=== PATIENT | female | born 1960 | race Caucasian/White ===

== ENCOUNTER 2017-04-13 08:14 | Emergency (ER) | payer OTHER ==
--- NOTE | 2017-04-13 08:16 | ED Physician Documentation ---
General Adult - HISTORIAN Historian: patient - HPI Stated Complaint: left arm "tingling like asleep" Chief Complaint: Upper Extremity Problem Onset: days ago (3) Timing: still present, other (worse at night ) Severity: mild Modifying Factors: she feels it is increased at night Context: tingling like asleep Quality: no pain Location: left arm and left leg - mild on left lower lip Further Comments: yes (she has been on a tapering does of prednisone for 11 days - she has a borderline HTN issue) Last known Well Date: 04/05/17 Last Known Well Time: 09:00 Last known Well Code/Unknown Code: Unknown - ROS CONST: no problems, recent illness (poison walker or rash ). denies: weakness, chills EYES/ENT: denies: problems with vision CVS/RESP: denies: chest pain, shortness of breath, cough GI/: denies: abdominal pain, problems urinating, vomiting, nausea MS/SKIN/LYMPH: other (rash that has resolved ) - PAST HX Past History: other (borderline HTN ) Other History: pancreatitis. denies: CVA, TIA, diabetes Type 1, diabetes Type 2 , hepatitis, HIV, seizure disorder Surgeries/Procedures: none Immunizations: referred to PCP Allergies/Adverse Reactions: Allergies Allergy/AdvReac Type Severity Reaction Status Date / Time cefadroxil hydrate Allergy Verified 04/13/17 08:30 [From [facility]] Penicillins Allergy Verified 04/13/17 08:30 Home Medications: Ambulatory Orders Medication Instructions Recorded NK [NK] 01/10/14 - SOCIAL HX Smoking History: non-smoker Alcohol Use: none Drug Use: none - FAMILY HX Family History: Yes (Mom HTN Dad HTN ) - VITAL SIGNS Vital Signs: Vital Signs Temp Pulse Resp BP Pulse Ox 150/97 01/10/14 14:11 - REVIEWED ASSESSMENTS Nursing Assessment Reviewed: Yes Vitals Reviewed: Yes Progress - Results/Orders Results/Orders: Examination: CT head without contrast History: Numbness Comparison exam: None available Technique: Noncontrast head CT protocol. Findings: Ventricles and sulci are appropriate for patient age. Cerebrocerebellar parenchyma demonstrates normal attenuation. No evidence for parenchymal hemorrhage. No evidence for mass or mass effect. No midline shift. No extra axial fluid collections. Partial visualization of the paranasal sinuses demonstrates right maxillary sinus air-fluid level. Mastoid air cells, orbits, skull and scalp without gross irregularity. Impression: No acute parenchymal process. No hemorrhage. Consider obtaining MRI brain to further evaluate if clinically warranted. Electronically signed on Apr 13, 2017 10:01:04 AM CDT by: Kee Sneed - EKG/XRAY/CT EKG: NSR General Adult Physical Exam - PHYSICAL EXAM GENERAL APPEARANCE: no distress EENT: eye inspection normal, ENT inspection normal, pharynx normal NECK: normal inspection RESPIRATORY: no resp distress CVS: reg rate & rhythm, heart sounds normal, equal pulses, no murmur ABDOMEN: soft, no organomegaly, normal bowel sounds, no abdominal bruit, no distension BACK: normal inspection SKIN: warm/dry, normal color EXTREMITIES: non-tender NEURO: oriented X3, CN's nml as tested, motor nml, sensation nml, mood/affect nml Discharge Clincal Impression: Medication adverse effect Qualifiers: Encounter type: initial encounter Qualified Code(s): T88.7XXA - Unspecified adverse effect of drug or medicament, initial encounter Referrals: Primary Doctor,No [Primary Care Provider] - 2 Days Condition: Stable Disposition: 01 HOME, SELF-CARE Decision to Admit: NO Date of Decison to Admit: 04/13/17 Decision Time: 10:04
[2017-04-13] MEDS ORDERED: methylPREDNISolone ACETATE 80 MG/ML VIAL IM ONE (08:54)
[2017-04-13] MEDS ORDERED: FAMOTIDINE 20 MG TABLET PO ONE (08:55)
[2017-04-13] MEDS ORDERED: diphenhydrAMINE HCL 25 MG TABLET PO ONE (08:56)
[2017-04-13 09:13] LABS: BASOPHILS % 0.9 (0.0-1.5); MEAN CORPUSCULAR HEMOGLOBIN 30.4 pg (28.0-34.0); MEAN CORPUSCULAR VOLUME 90.5 fl (80.0-100.0); MONOCYTES % 8.2 % (0.0-11.0); NEUTROPHILS # 4.5 # k/uL (1.4-7.7)
[2017-04-13 09:24] LABS: eGFR (African) > 60; eGFR (Non-African) > 60
[2017-04-13 10:23] VITALS: BP 142/79
--- NOTE | 2017-04-13 13:17 | Diagnostic Imaging Report ---
KO SZYMANSKI [facility] [id number] [facility] [address] [place], [place]. [address] Report Submission Date: Apr 13, 2017 10:01:04 AM CDT Patient Study Name: SUMAN LEO Date: Apr 13, 2017 9:37:58 AM CDT Modality Type: CT\SR Gender: F Description: CT BRAIN W/O CONTRAST : 62 Institution: [facility] Physician: KO SZYMANSKI Examination: CT head without contrast History: Numbness Comparison exam: None available Technique: Noncontrast head CT protocol. Findings: Ventricles and sulci are appropriate for patient age. Cerebrocerebellar parenchyma demonstrates normal attenuation. No evidence for parenchymal hemorrhage. No evidence for mass or mass effect. No midline shift. No extra axial fluid collections. Partial visualization of the paranasal sinuses demonstrates right maxillary sinus air-fluid level. Mastoid air cells, orbits, skull and scalp without gross irregularity. Impression: No acute parenchymal process. No hemorrhage. Consider obtaining MRI brain to further evaluate if clinically warranted. Electronically signed on Apr 13, 2017 10:01:04 AM CDT by: Kee Sneed [facility]
== END 2017-04-13 10:19 | disposition home or self-care (01) ==
LOC: ED 08:14
DX: T88.7XXA Unspecified adverse effect of drug or medicament, initial encounter (principal); X58.XXXA Exposure to other specified factors, initial encounter; Y93.9 Activity, unspecified; Y99.9 Unspecified external cause status
CPT/HCPCS: 70450; 80053; 83735; 84484; 85025; 99283; S1016

== ENCOUNTER 2018-01-25 11:25 | Outpatient (CLI) | payer OTHER ==
[2018-01-25 12:29] LABS: eGFR (African) > 60; eGFR (Non-African) > 60
== END 2018-01-25 11:26 ==
LOC: RT 11:25
PROVIDERS: ATTEND Physician Assistant
DX: I10 Essential (primary) hypertension (principal); R20.2 Paresthesia of skin
CPT/HCPCS: 36415; 80053; 84484